=== PATIENT | male | born 1995 | race Caucasian/White ===

== ENCOUNTER 2017-11-02 16:10 | Emergency (ER) | payer SELFPAY ==
[~2017-11-02] VITALS: Ht 162.6 cm; Wt 59.1 kg
[2017-11-02] MEDS ORDERED: LIDOCAINE HCL 1% 10 ML VIAL INJ ONE (19:00)
[2017-11-02 20:15] VITALS: BP 122/70
== END 2017-11-02 20:51 | disposition home or self-care (01) ==
LOC: EMS 16:11
DX: S90.851A Superficial foreign body, right foot, initial encounter (principal); M79.645 Pain in left finger(s); R03.0 Elevated blood-pressure reading, without diagnosis of hypertension; W45.8XXA Other foreign body or object entering through skin, initial encounter; Y92.89 Other specified places as the place of occurrence of the external cause; Y93.89 Activity, other specified; Y99.8 Other external cause status
CPT/HCPCS: 10120; 73130; 73630; 99284; J3490